=== PATIENT | male | born 2000 | race Caucasian/White ===

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

== ENCOUNTER 2022-03-22 20:41 | Emergency (ER) | payer OTHER ==
[~2022-03-22] VITALS: Ht 177.8 cm; Wt 65.9 kg
[2022-03-23] MEDS ORDERED: GLUCAGON INJ 1MG VIAL IV STA (01:10)
[2022-03-23] MEDS ORDERED: propofoL 200 MG/20 ML VIAL As Ordered ONE (02:38)
[2022-03-23] MEDS ORDERED: fentaNYL 100 MCG/2 ML INJECTION As Ordered ONE (02:38)
[2022-03-23] MEDS ORDERED: ROCURONIUM BROMIDE 50 MG/5 ML VIAL As Ordered ONE (02:38)
[2022-03-23] MEDS ORDERED: MIDAZOLAM INJ 2MG/2ML VIAL (J2250 PER 1MG) As Ordered ONE (02:38)
[2022-03-23] MEDS ORDERED: LIDOCAINE 2% 100MG/5ML SDV (FOR ANES.) As Ordered ONE (02:38)
[2022-03-23] MEDS ORDERED: dexameTHASONE 4 MG/ML 1ML VIAL (J1100 PER 1MG) As Ordered ONE (02:38)
[2022-03-23] MEDS ORDERED: ONDANSETRON 4MG 2ML VIAL As Ordered ONE (02:38)
[2022-03-23] MEDS ORDERED: SUCCINYLCHOLINE 100 MG/5 ML SYRINGE (J0330) As Ordered ONE (02:38)
[2022-03-23] MEDS ORDERED: SUGAMMADEX SODIUM 500 MG/5 ML VIAL (BRIDION) As Ordered ONE (02:38)
[2022-03-23 03:21] VITALS: BP 114/63
== END 2022-03-23 03:25 | disposition home or self-care (01) ==
LOC: M ED 20:41 → M SDC 03-23 02:17 → CANBEDREQ 03-23 03:09
DX: T18.128A Food in esophagus causing other injury, initial encounter (principal); Z86.19 Personal history of other infectious and parasitic diseases; Z88.8 Allergy status to other drugs, medicaments and biological substances
CPT/HCPCS: 70360; 87635; 96374; 99284; J1610; J2250; J3010

== ENCOUNTER 2022-11-18 12:28 | Day surgery (SDC) | payer BC, OTHER ==
[~2022-11-18] VITALS: Ht 180.3 cm; Wt 61.4 kg
[~2022-11-18 12:28] MED LIST: NS 1,000 ML IV ONE
[2022-11-18] MEDS ORDERED: LIDOCAINE 2% 100MG/5ML SDV (FOR ANES.) As Ordered ONE (13:35)
[2022-11-18] MEDS ORDERED: propofoL 200 MG/20 ML VIAL As Ordered ONE ×2 (13:35→14:58)
[2022-11-18] MEDS ORDERED: fentaNYL 100 MCG/2 ML INJECTION As Ordered ONE (13:37)
[2022-11-18 15:35] VITALS: BP 118/73
== END 2022-11-18 15:39 | disposition home or self-care (01) ==
LOC: M OPP 12:28
PROVIDERS: ATTEND Internal Medicine Gastroenterology
DX: K20.0 Eosinophilic esophagitis (principal); A04.8 Other specified bacterial intestinal infections; K29.70 Gastritis, unspecified, without bleeding; K22.89 Other specified disease of esophagus; Z86.19 Personal history of other infectious and parasitic diseases
CPT/HCPCS: 43239; 88305; J3010